=== PATIENT | male | born 1965 | race Caucasian/White ===

== ENCOUNTER 2017-01-05 13:52 | Emergency (ER) | payer BC ==
[2017-01-05 15:17] VITALS: BP 161/94
--- NOTE | 2017-01-05 15:56 | UC ---
UC General HPI - HPI Summary HPI Summary: Patient has been treated for strep and ear infection, currently taking medication for treatment. has a sore spot on the back of the neck, not sure what is causing it. his BP was elevated, which is not normal for him. - History of Current Complaint Chief Complaint: Naz[place]in Stated Complaint: EAR PAIN Time Seen by Provider: 01/05/17 15:42 Hx Obtained From: Patient Onset/Duration: Sudden Onset, Lasting Days Timing: Constant Onset Severity: Moderate Current Severity: Moderate Associated Signs & Symptoms: Positive: Headache - Allergy/Home Medications Allergies/Adverse Reactions: Allergies Allergy/AdvReac Type Severity Reaction Status Date / Time Unable to Obtain Allergy Verified 01/05/17 14:31 Home Medications: Home Medications DOXYcycline CAP(*) [DOXYcycline 100MG CAP(*)] 100 mg PO BID 01/05/17 [History Confirmed 01/05/17] PMH/Surg Hx/FS Hx/Imm Hx Previously Healthy: Yes - Surgical History Surgical History: None - Family History Known Family History: Positive: Hypertension, Respiratory Disease - Social History Alcohol Use: Occasionally Substance Use Type: None Smoking Status (MU): Never Smoked Tobacco When Did the Patient Quit Smoking/Using Tobacco: 25 years ago - Immunization History Most Recent Influenza Vaccination: no Review of Systems Constitutional: Negative Skin: Negative Eyes: Negative ENT: Negative Respiratory: Negative Cardiovascular: Negative Gastrointestinal: Negative Genitourinary: Negative Motor: Negative Neurovascular: Negative Musculoskeletal: Negative Neurological: Headache Psychological: Negative Is Patient Immunocompromised?: No All Other Systems Reviewed And Are Negative: Yes Physical Exam Triage Information Reviewed: Yes Appearance: No Pain Distress, Well-Nourished, Pain Distress Vital Signs: Initial Vital Signs Temp 97.8 F 01/05/17 14:24 Pulse 78 01/05/17 14:24 Resp 15 01/05/17 14:24 BP 186/98 01/05/17 14:24 Pulse Ox 99 01/05/17 14:24 Vital Signs Reviewed: Yes Eye Exam: Normal ENT: Positive: Pharyngeal erythema, TMs normal Dental Exam: Normal Neck exam: Normal Neck: Positive: Enlarged Nodes @ - left occipital Respiratory Exam: Normal Respiratory: Positive: Chest non-tender, Lungs clear, Normal breath sounds Cardiovascular Exam: Normal Cardiovascular: Positive: RRR, No Murmur, Pulses Normal Abdominal Exam: Normal Abdomen Description: Positive: Nontender, No Organomegaly, Soft Bowel Sounds: Positive: Present Musculoskeletal Exam: Normal Musculoskeletal: Positive: Strength Intact, ROM Intact, No Edema Neurological Exam: Normal Neurological: Positive: Alert, Muscle Tone Normal Psychological Exam: Normal Skin Exam: Normal Course/Dx - Course Course Of Treatment: hx obtained, exam performed ,meds reviewed, prednisone given for inflammation, adivsed follow up for BP - Differential Dx - Multi-Symptom Provider Diagnoses: lymphadenopathy Discharge - Discharge Plan Condition: Stable Disposition: HOME Prescriptions: predniSONE TAB* [Deltasone TAB*] 40 mg PO DAILY #14 tab Patient Education Materials: Lymphadenopathy (ED) Referrals: Non Staff,Doctor [Primary Care Provider] - Additional Instructions: 1. TAKE THE MEDICATION PRESCRIBED. 2. wARM COMPRESSES TO THE BACK OF NECK 3. foLLOW UP WITH YOUR DOCTOR FOR ANY ELEVATION IN BP
== END 2017-01-05 16:21 | disposition home or self-care (01) ==
LOC: UCCORT 13:52
DX: R59.1 Generalized enlarged lymph nodes (principal)
CPT/HCPCS: 99202; G0463